=== PATIENT | female | born 1970 | race Caucasian/White ===

== ENCOUNTER → 2023-10-22 14:54 | Outpatient (REF) | payer OTHER, SELFPAY | LOC: HWRCS 14:54 | PROVIDERS: ATTENDING PHYSICIAN Internal Medicine | DX: R01.1 Cardiac murmur, unspecified (principal) | CPT/HCPCS: 93306 ==

== ENCOUNTER → 2025-01-02 11:44 | Outpatient (REF) | payer OTHER, SELFPAY | LOC: RAD 11:44 | PROVIDERS: ATTENDING PHYSICIAN Student in an Organized Health Care Education/Training Program; FAMILY PHYSICIAN Internal Medicine | DX: M25.571 Pain in right ankle and joints of right foot (principal) | CPT/HCPCS: 73610; 73630 ==

== ENCOUNTER 2025-03-02 06:53 | Emergency (ER) | payer OTHER, SELFPAY ==
[2025-03-02 06:55] VITALS: BP 137/101
[2025-03-02 07:11] VITALS: BMI 22.6
[2025-03-02 07:15] VITALS: BP 163/74
--- NOTE | 2025-03-02 07:16 | ED.GENMED ---
History of Present Illness
General
Chief Complaint: Head Injury
Source: patient
Exam Limitations: none
Time Seen by Provider: 03/02/25 07:06
History of Present Illness
History of Present Illness:
54-year-old female presents for evaluation of head injury. 2 days ago, she was walking with her dog and her shoe got caught and she fell onto concrete. She fell down 2 steps. She hit the front forehead. No loss of conscious. She is not
anticoagulated. She notes a headache swelling of the right side of the head and increasing bruising around the eyes. She denies any significant neck pain. She trying to take it easy since then. No other complaints
Phy Exam
Physical Exam
Physical Exam:
General: Well-appearing female no acute distress
HEENT: Normal cephalic abrasions noted to the forehead and right parietal area. The right parietal area is with scalp hematoma. TMs normal there is periorbital ecchymosis bilaterally pupils equal round reactive to light
Heart: Regular rate and rhythm
Lungs: Clear no wheeze
Musculoskeletal exam: mild diffuse paraspinous tenderness about cervical spine
Course
Orders/Labs/Results
Orders:
Orders
03/02/25 07:16
CT Cervical Spine W/o Iv Contr Urgent
Comment:
Reason For Exam: fall
CT Head W/o Iv Contrast Urgent
Comment:
Reason For Exam: fall
Vital Signs
Initial and Last Documented VS:
Initial Vital Signs
Temp Pulse Resp BP Pulse Ox
97.8 F 99 16 137/101 97
03/02/25 06:55 03/02/25 06:55 03/02/25 06:55 03/02/25 06:55 03/02/25 06:55
Last Documented Vital Signs
Temp Pulse Resp BP Pulse Ox
97.8 F 77 15 125/60 97
03/02/25 06:55 03/02/25 08:00 03/02/25 08:00 03/02/25 08:00 03/02/25 07:17
MDM/Problems Addressed
Differential Diagnosis Includes:
Mechanical fall with head strike. Consider scalp hematoma versus skull fracture versus intracranial hemorrhage. CT of the head and cervical spine ordered
*Pulse Oximetry
SaO2: 97
Oxygen Mode of Delivery: Room air
Patient hypoxic: no
*Critical Care Note
Total Time (30-74mins, 75-104mins- exclusive of procedures): Not Applicable
Update Note
Update Note:
CT of the head and cervical spine negative for acute intracranial hemorrhage or fracture. Reassured patient. Stable for discharge. There is a thyroid nodule noted on the CAT scan. Patient was notified about this and vies follow-up with family
doctor
ED Attending Note
-
Portions of this chart may have been created with voice recognition software.� Occasional wrong word or��sound alike� substitutions may have occurred due to the inherent limitations of voice recognition software.
Discharge Plan
Departure
Patient Disposition: Home (Routine Discharge)
Date of Disposition: 03/02/25
Time of Disposition: 09:25
Patient with high blood pressure during this ER visit?: No
Discharge Problem:
Contusion
Instructions: Concussion, Adult (DC)
Prescriptions:
No Action
amoxicillin-pot clavulanate 875-125 mg tablet
1 tab PO BID Qty: 10 0RF
Referrals:
Irving Elizabeth MD [Family Provider, Internal Medicine]
Activity Restrictions/Additional Instructions:
You may ice to the sore spot. You may use Tylenol for pain. Rest. Avoid excessive physical or cognitive activity. As discussed, there was a small nodule noted on your thyroid. This needs to be followed up with your family doctor
Interventions
Interventions:
*Risk Screen - Suicide Last Done: 03/02/25 06:55
*General Assessment Last Done: 03/02/25 07:16
*Neglect/Abuse Screening Last Done: 03/02/25 06:55
*ED- Fall Risk Assessment Last Done: 03/02/25 07:16
*ED COVID-19 Vaccine History Last Done: 03/02/25 07:16
*ED Influenza Vaccine History Last Done: 03/02/25 07:16
ED- Neurological Assessment Last Done: 03/02/25 07:14
ED-Skin Assessment Last Done: 03/02/25 07:14
Discharge Date and Time
Print Language: WOLOF
[2025-03-02 08:00] VITALS: BP 125/60
[2025-03-02 09:00] VITALS: BP 118/59
== END 2025-03-02 09:30 | disposition home or self-care (01) ==
LOC: EMR 06:53
PROVIDERS: EMERGENCY PHYSICIAN Emergency Medicine; FAMILY PHYSICIAN Internal Medicine
DX: S00.03XA Contusion of scalp, initial encounter (principal); W10.9XXA Fall (on) (from) unspecified stairs and steps, initial encounter; Y93.K1 Activity, walking an animal; E04.1 Nontoxic single thyroid nodule
CPT/HCPCS: 99284; 70450; 72125